=== PATIENT | female | born 1965 ===

== ENCOUNTER 2020-08-26 11:30 | Inpatient (IN) | payer OTHER ==
[~2020-08-26] VITALS: Ht 160 cm; Wt 92.1 kg
[2020-08-26] MEDS ORDERED: METFORMIN HCL1000 M2 PO (13:52)
[2020-08-26] MEDS ORDERED: GLIMEPIRIDE4 MG (13:53)
[2020-08-26] MEDS ORDERED: COZAAR100 MG PO (13:53)
[2020-08-26] MEDS ORDERED: NIFE60TA3 PO (13:54)
== END 2020-09-10 16:07 | disposition home or self-care (01) | DRG 743 ==
LOC: SURH 09-01 07:00 → O/R 09-08 10:21 → OB/GYN 09-08 17:07
PROVIDERS: ADMIT Obstetrics & Gynecology; ATTEND Obstetrics & Gynecology
PROC: 0UT60ZZ Resection of Left Fallopian Tube, Open Approach (ICD-10-PCS; 2020-09-08)
PROC: 0UT10ZZ Resection of Left Ovary, Open Approach (ICD-10-PCS; principal; 2020-09-08 11:15)
DX: D27.1 Benign neoplasm of left ovary (principal); N83.8 Other noninflammatory disorders of ovary, fallopian tube and broad ligament

== ENCOUNTER 2020-11-28 12:56 | Inpatient (IN) | payer OTHER ==
[~2020-11-28] VITALS: Ht 160 cm; Wt 97.5 kg
[~2020-11-28 12:56] MED LIST: COZAAR100 MG PO; GLIMEPIRIDE4 MG; METFORMIN HCL1000 M2 PO; NIFE60TA3 PO
[2020-11-28] MEDS ORDERED: ACTOS30 MG PO (13:25)
== END 2020-12-04 11:22 | disposition home or self-care (01) | DRG 863 ==
LOC: ER 12:56 → SEC-K 19:13 → OB/GYN 11-29 10:31
PROVIDERS: ADMIT Obstetrics & Gynecology; ATTEND Obstetrics & Gynecology
PROC: BW211ZZ Computerized Tomography (CT Scan) of Abdomen and Pelvis using Low Osmolar Contrast (ICD-10-PCS; principal; 2020-11-28)
DX: T81.49XA Infection following a procedure, other surgical site, initial encounter (principal); L76.34 Postprocedural seroma of skin and subcutaneous tissue following other procedure; E11.9 Type 2 diabetes mellitus without complications; I10 Essential (primary) hypertension